=== PATIENT | female | born 1975 | race American Indian/Alaskan Native ===

== ENCOUNTER 2016-05-06 14:01 | Emergency (ER) | payer BC ==
[2016-05-06 14:20] VITALS: BP 158/92
[2016-05-06] MEDS ORDERED: XYLOCAINE 1% 20 mL INFILTRATI ONE (18:06)
[2016-05-06] MEDS ORDERED: NORCO 5/325 PO ONE (18:52)
--- NOTE | 2016-05-06 18:57 | Emergency Department Report ---
ED Female HPI - General Chief complaint: Urogenital-Female Stated complaint: GROIN PAIN Time Seen by Provider: 05/06/16 16:39 Source: patient Mode of arrival: Ambulatory Limitations: No Limitations - History of Present Illness Initial comments: 40-year-old female past medical history none presents with complaint of one month of right side vaginal labial swelling. Patient states that it was initially small and has become progressively bigger area patient states that over the course of last week has become tender to touch and painful. Denies any abdominal pain nausea fever or chills and no dysuria. Denies any drainage. Patient describes it as a small red ball at top of the labia on right side. States pain makes it difficult to walk. MD Complaint: other Location: labia (vaginal lesion) Severity scale (0 -10): 6 Consistency: constant Improves with: none, menstrual period Are you Now?: No - Related Data Previous Rx's Medication Instructions Recorded Last Taken Type Naproxen Sodium (Nf) [Anaprox DS] 550 mg PO BID PRN #20 tablet 08/20/13 Unknown Rx HYDROcodone/APAP 5-325 [[place] 1 each PO Q6HR PRN #16 tablet 09/01/15 Unknown Rx 5/325] HYDROcodone/APAP 5-325 [[place] 1 each PO Q6HR PRN #14 tablet 05/06/16 Unknown Rx 5/325] Allergies Allergy/AdvReac Type Severity Reaction Status Date / Time aspirin Allergy Angioedema Verified 09/01/15 10:23 ED Review of Systems ROS: Stated complaint: GROIN PAIN Other details as noted in HPI Constitutional: denies: chills, fever Eyes: denies: eye pain, eye discharge, vision change ENT: denies: ear pain, throat pain Respiratory: denies: cough, shortness of breath, wheezing Cardiovascular: denies: chest pain, palpitations Endocrine: no symptoms reported Gastrointestinal: denies: abdominal pain, nausea, diarrhea Genitourinary: as per HPI, other (vaginal lesion times one month). denies: urgency, dysuria, discharge Musculoskeletal: denies: back pain, joint swelling, arthralgia Skin: denies: rash, lesions Neurological: denies: headache, weakness, paresthesias Psychiatric: denies: anxiety, depression Hematological/Lymphatic: denies: easy bleeding, easy bruising ED Past Medical Hx - Past Medical History Previous Medical History?: Yes Hx Hypertension: Yes Additional medical history: thyroid dz - Surgical History Past Surgical History?: Yes Hx Cholecystectomy: Yes - Social History Smoking Status: Current Every Day Smoker Substance Use Type: Non Opiate Pain - Medications Home Medications: Home Medications Medication Instructions Recorded Confirmed Last Taken Type Naproxen Sodium (Nf) [Anaprox DS] 550 mg PO BID PRN #20 tablet 08/20/13 Unknown Rx HYDROcodone/APAP 5-325 [[place] 1 each PO Q6HR PRN #16 tablet 09/01/15 Unknown Rx 5/325] HYDROcodone/APAP 5-325 [[place] 1 each PO Q6HR PRN #14 tablet 05/06/16 Unknown Rx 5/325] ED Physical Exam - General Limitations: No Limitations General appearance: alert, in no apparent distress - Head Head exam: Present: atraumatic, normocephalic - Eye Eye exam: Present: normal appearance - ENT ENT exam: Present: mucous membranes moist - Neck Neck exam: Present: normal inspection - Respiratory Respiratory exam: Present: normal lung sounds bilaterally. Absent: respiratory distress - Cardiovascular Cardiovascular Exam: Present: regular rate, normal rhythm. Absent: systolic murmur, diastolic murmur, rubs, gallop - GI/Abdominal GI/Abdominal exam: Present: soft, normal bowel sounds - Expanded Exam Expanded Female exam: Present: other (Bartholin's gland abscess right side) image: 1 - Bartholin's gland abscess approximately 1.5 cm in circumference tender to touch - Extremities Exam Extremities exam: Present: normal inspection - Back Exam Back exam: Present: normal inspection - Neurological Exam Neurological exam: Present: alert, oriented X3, CN II-XII intact, normal gait - Psychiatric Psychiatric exam: Present: normal affect, normal mood - Skin Skin exam: Present: warm, dry, intact, normal color. Absent: rash ED Course Vital Signs 05/06/16 14:15 Temperature 98.5 F Pulse Rate 77 Respiratory 18 Rate Blood Pressure 158/92 O2 Sat by Pulse 100 Oximetry - I & D Vagina Site: right upper labial inner fold Blade Size: 11 I & D Procedure: betadine prep Progress: 1.5 cm Bartholin's gland abscess incised and drained, minimal bleeding, moderate amount of drainage, I was able to remove large part of fibrous capsule/ cystic capsule. Tolerated well minimal bleeding anesthetized with 1% lidocaine with epinephrine approximately 5 mL ED Medical Decision Making - Medical Decision Making A/P: Bartholin's gland abscess 1-abscess incised and drained, small 0.5 cm vertical surgical incision made in her labia, small part of fibrous capsule removed. Procedure tolerated well minimal bleeding and minimal pain 2-Bactrim and Keflex twice a day 7 days 3-and states she is allergic to NSAIDs, short course nor covert pain 4-follow-up with [facility]. I emphasized the importance of following up with [facility] P[facility] HELPER JASMINA for Bartholin's gland abscess Critical care attestation.: If time is entered above; I have spent that time in minutes in the direct care of this critically ill patient, excluding procedure time. ED Disposition Clinical Impression: Bartholin gland cyst Disposition: DISCHARGED TO HOME OR SELFCARE Is pt being admited?: No Does the pt Need Aspirin: No Condition: Stable Instructions: Incision and Drainage (ED), Bartholin Cyst (ED), Sitz Bath (GEN) , Abscess Incision and Drainage (ED) Prescriptions: HYDROcodone/APAP 5-325 [[place] 5/325] 1 each PO Q6HR PRN #14 tablet PRN Reason: Pain Referrals: EARNEST MARIE MD [Primary Care Provider] - 3-5 Days AMIE CHÁVEZ MD [Staff Physician] - 3-5 Days [facility] [Provider Group] - 3-5 Days Forms: Work/School Release Form(ED) Time of Disposition: 19:03
== END 2016-05-06 19:05 | disposition home or self-care (01) ==
LOC: ED 14:01
DX: N75.0 Cyst of Bartholin's gland (principal); I10 Essential (primary) hypertension; F17.200 Nicotine dependence, unspecified, uncomplicated; Z90.49 Acquired absence of other specified parts of digestive tract; Z88.8 Allergy status to other drugs, medicaments and biological substances